=== PATIENT | male | born 1990 | race Caucasian/White ===

== ENCOUNTER 2024-09-28 20:21 | Emergency (ER) | payer BC, SELFPAY ==
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
[2024-09-28 20:23] VITALS: BP 102/68; PULSE 121; RESP 18; TEMP 36.9; O2SAT 100
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
--- NOTE | 2024-09-28 20:35 | PC.NURSE ---
RELEASE OF MEDICAL RECORDS FAXED TO [facility] REGARDING ER VISIT LAST WEEK
--- NOTE | 2024-09-28 20:40 | PC.NURSE ---
PATIENT BEING TRANSPORTED TO RADIOLOGY VIA WHEEL CHAIR
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
--- NOTE | 2024-09-28 21:42 | PC.NURSE ---
THIS RN ASSISTED DR CORTES WITH PLACING SPLINT. +CSM POST SPLINT PLACEMENT. SLING TO RIGHT ARM.
[2024-09-28] MEDS: HYDROcodone/acetaminophen (*CRX) 5-325 MG TABLET 1 TAB PO (21:59)
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
[2024-09-28 22:13] VITALS: BP 110/78; PULSE 92; RESP 18; O2SAT 100
== END 2024-09-28 22:13 | disposition home or self-care (01) ==
PROVIDERS: Emergency Provider Internal Medicine Critical Care Medicine
DX: S62.354D Nondisplaced fracture of shaft of fourth metacarpal bone, right hand, subsequent encounter for fracture with routine healing (principal); V89.2XXD Person injured in unspecified motor-vehicle accident, traffic, subsequent encounter
CPT/HCPCS: 29125; 73130; 99284; A4565; A9270